=== PATIENT | female | born 1960 | race Caucasian/White ===

== ENCOUNTER 2019-07-15 10:34 | Day surgery (SDC) | payer OTHER ==
[~2019-07-15] VITALS: Ht 167.6 cm; Wt 126.0 kg
[~2019-07-15 10:34] MED LIST: ALLEGRA ALLERG180 M1; CRUTCH3 USE; EXEN10PI SQ; FEXO180 PO; GLIM2; GLIM4 PO; GLYB5 PO; Glucophage1000 MG PO; HYDACE5 PO; HYDACE5325 PO; IBUP800 PO; LEVSOD75 PO; LOSARTAN-HCTZ1 EACH; METF500 PO; Metformin HCl1000 MG PO; Minocycline HC100 MG; Norco 7.5-3251 EACH PO; PHENTERMINE; PIOG15 PO; PRAV20 PO; Prozac20 MG; TELM40 PO; TELM40/12.; VALSARTAN-HCTZ1 EAC1 PO; WOMEN'S DAILY1 EACH
--- NOTE | 2019-07-15 11:23 | NUR ---
07/15/19 1123 MAGNOLIA HENDERSON ONE BLEW, SECOND WAS GOOD. BY MA IN RIGHT AC
== END 2019-07-15 13:07 | disposition home or self-care (01) ==
LOC: ORSCSDS 10:34
PROVIDERS: Internal Medicine Gastroenterology
PROC: 0DBL8ZX Excision of Transverse Colon, Via Natural or Artificial Opening Endoscopic, Diagnostic (ICD-10-PCS; principal; 2019-07-15 12:00)
PROC: 0DBH8ZX Excision of Cecum, Via Natural or Artificial Opening Endoscopic, Diagnostic (ICD-10-PCS; principal; 2019-07-15 12:00)
DX: Z12.11 Encounter for screening for malignant neoplasm of colon (principal); D12.3 Benign neoplasm of transverse colon; K63.5 Polyp of colon; K57.30 Diverticulosis of large intestine without perforation or abscess without bleeding; K64.8 Other hemorrhoids; Z86.010 Personal history of colon polyps; E11.40 Type 2 diabetes mellitus with diabetic neuropathy, unspecified; I10 Essential (primary) hypertension; Z79.84 Long term (current) use of oral hypoglycemic drugs; Z79.899 Other long term (current) drug therapy
CPT/HCPCS: 82947; 88305; J2704; J7120

== ENCOUNTER → 2020-07-17 | Outpatient (CLI) | payer OTHER | LOC: LAB SHORT 16:40 → LAB EV 16:40 | DX: R05 Cough (principal); Z20.828 Contact with and (suspected) exposure to other viral communicable diseases | CPT/HCPCS: U0003 ==

== ENCOUNTER → 2020-09-18 | Outpatient (CLI) | payer OTHER ==
[~2020-09-18] MED LIST changes: +DOXY100 PO; -LOSARTAN-HCTZ1 EACH; +LOSARTAN-HCTZ1 EACH PO; -Prozac20 MG; +Prozac20 MG PO
== END | disposition home or self-care (01) ==
LOC: LAB SHORT 07:21 → PLD 07:21
DX: D48.7 Neoplasm of uncertain behavior of other specified sites (principal)
CPT/HCPCS: 88173

== ENCOUNTER 2020-12-12 09:54 | Day surgery (SDC) | payer OTHER ==
[~2020-12-12] VITALS: Ht 167.6 cm; Wt 123.6 kg
[~2020-12-12 09:54] MED LIST changes: -DOXY100 PO
[2020-12-12] MEDS ORDERED: DOXY100 PO (10:34)
--- NOTE | 2020-12-12 10:44 | NUR ---
12/12/20 1044 HANG HAWTHORNE PT AND DAUGHTER BOTH UPDATED THAT DR. LY IS EXPECTING HIS PRIOR SURGERY TO RUN LONGER THAN EXPECTED. PT READY FOR OR IN PRE OP. IV IN L HAND. TERRENCE, DAUGHTER ADVISED WILL NOTIFY ONCE PT GOES TO OR. ENGAGED IN PRE OP TEACHING AND ALL QUESTIONS ASKED AND ANSWERED.
--- NOTE | 2020-12-12 13:53 | NUR ---
12/12/20 1353 Martha Matta 2.5ML OF NACL WITH EPI 1:200,000 USED FOR PREINJECTION.
== END 2020-12-12 15:21 | disposition home or self-care (01) ==
LOC: ORSCSDS 09:54
PROVIDERS: Otolaryngology
PROC: 0JB50ZX Excision of Left Neck Subcutaneous Tissue and Fascia, Open Approach, Diagnostic (ICD-10-PCS; principal; 2020-12-12 11:15)
DX: K11.23 Chronic sialoadenitis (principal); I10 Essential (primary) hypertension; E11.9 Type 2 diabetes mellitus without complications; Z79.84 Long term (current) use of oral hypoglycemic drugs; Z79.899 Other long term (current) drug therapy
CPT/HCPCS: 82947; 88307; J0171; J1100; J2250; J2405; J2704; J3010; J7120

== ENCOUNTER → 2022-05-19 | Outpatient (CLI) | payer OTHER ==
[~2022-05-19] MED LIST changes: +DOXY100 PO
[2022-05-19 14:26] LABS: Candida species (DNA Probe) Negative (NEGATIVE); G. vaginalis (DNA Probe) Negative (NEGATIVE); T. vaginalis (DNA Probe) Negative (NEGATIVE)
== END | disposition home or self-care (01) ==
LOC: LAB SHORT 12:14
PROVIDERS: Family Medicine
DX: N89.8 Other specified noninflammatory disorders of vagina (principal)
CPT/HCPCS: 87480; 87510; 87660

== ENCOUNTER → 2022-10-09 | Outpatient (CLI) | payer OTHER | END | disposition home or self-care (01) | LOC: LAB SHORT 07:50 → PLD 07:50 | DX: D48.7 Neoplasm of uncertain behavior of other specified sites (principal); L72.3 Sebaceous cyst | CPT/HCPCS: 88305 ==

== ENCOUNTER → 2022-12-09 | Outpatient (CLI) | payer OTHER | END | disposition home or self-care (01) | LOC: PLD 10:22 → LAB SHORT 10:22 | DX: L57.0 Actinic keratosis (principal) | CPT/HCPCS: 88305 ==